=== PATIENT | female | born 1960 | race Hispanic/Latino ===

== ENCOUNTER 2019-06-12 16:40 | Emergency (ER) | payer SELFPAY ==
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
[2019-06-12] MEDS ORDERED: DIAZEPAM 2 MG TABLET ONE (17:12)
[2019-06-12] MEDS ORDERED: KETOROLAC 30 MG/ML INJ ONE (17:12)
[2019-06-12 18:57] VITALS: BP 142/81; TEMP 98.7; O2SAT 98
== END 2019-06-12 17:39 | disposition home or self-care (01) ==
LOC: ER 16:40
DX: M54.12 Radiculopathy, cervical region (principal); M62.838 Other muscle spasm; V43.52XA Car driver injured in collision with other type car in traffic accident, initial encounter; Y93.89 Activity, other specified; Y92.410 Unspecified street and highway as the place of occurrence of the external cause; Z88.0 Allergy status to penicillin; Z88.2 Allergy status to sulfonamides
CPT/HCPCS: 96374; 99284